=== PATIENT | male | born 1975 | race Caucasian/White ===

== ENCOUNTER → 2017-10-25 | Outpatient (CLI) | payer OTHER ==
[2017-10-25] MEDS: REGADENOSON 0.4 MG/5 ML DISP.SYRIN. IV (10:48)
== END | disposition home or self-care (01) ==
LOC: NM 09:21
DX: I11.0 Hypertensive heart disease with heart failure (principal); I25.10 Atherosclerotic heart disease of native coronary artery without angina pectoris; E11.9 Type 2 diabetes mellitus without complications; Z79.01 Long term (current) use of anticoagulants
CPT/HCPCS: 78452; 93017; 96374; 96375; 96376; A9500; J2785

== ENCOUNTER 2019-06-09 07:38 | Emergency (ER) | payer OTHER ==
[~2019-06-09] VITALS: Ht 193 cm; Wt 122.5 kg
[~2019-06-09 07:38] MED LIST: AMLO5TAB10 PO; ATOR20TA58 PO; EXEN5PEN2 SQ; FENO145T30 PO; FISH1CAP PO; GLUC100018 PO; METF500T16 PO; OMEP40CA45 PO
[2019-06-09 07:55] VITALS: BP 160/80
[2019-06-09] MEDS ORDERED: CYCL10TA2 PO (08:19)
[2019-06-09] MEDS ORDERED: DICL50TA4 PO (08:19)
--- NOTE | 2019-06-09 08:19 | PHYS DOC ---
Past Medical History Past Medical History: Diabetes-Type II, GERD, Hypertension Past Surgical History: Tonsillectomy Additional Past Surgical Histo: ROTATOR CUFF R, MENISCUS Alcohol Use: Occasionally Drug Use: None Adult General Chief Complaint Chief Complaint: BACK PAIN OR INJURY HPI HPI Patient is a 44-year-old male presents to the emergency department for evaluation. He states for the past 2 weeks he has had some generalized low back pain, he denies any injuries. He states that he has been on his feet a lot over the past few days, taking his children to various entertainment venues, and although he did not do any super strenuous activity, or have any injuries, he has had increased back pain over the past 2 days. The pain is in the central of his lumbar spine, and worsened with movement. The pain does not radiate, he has not had any fevers, chills, numbness, weakness, incontinence, saddle anesthesia, or urinary retention. There are no alleviating or exacerbating factors to his symptoms. He did go see a chiropractor about 1 week ago. Review of Systems Review of Systems Constitutional: Denies fever or chills [] Eyes: Denies change in visual acuity, redness, or eye pain [] HENT: Denies nasal congestion or sore throat [] Respiratory: Denies cough or shortness of breath [] GI: Denies abdominal pain, nausea, vomiting, bloody stools or diarrhea [] : Denies dysuria or hematuria [] Musculoskeletal: Denies neck pain or upper back pain or joint pain [] Integument: Denies rash or skin lesions [] Neurologic: Denies headache, focal weakness or sensory changes [] Endocrine: Denies polyuria or polydipsia [] Allergies Allergies Allergies Coded Allergies Type Severity Reaction Last Updated Verified lisinopril Allergy Severe Swelling 10/25/17 No Physical Exam Physical Exam PHYSICAL EXAM: CONSTITUTIONAL: Well developed, well nourished HEAD: normocephalic, atraumatic EENT: PERRL, EOMI. Conjunctivae normal color, sclerae non-icteric; moist mucous membranes. NECK: Supple, non-tender; no meningismus. LUNGS: Lungs CTA, breathing even and unlabored. Normal air movement. HEART: Regular rate and rhythm, no murmur CHEST: No deformity; non-tender ABDOMEN: The abdomen is soft, and non-tender, no masses or bruits. EXTREM: Normal ROM; no deformity, no calf tenderness. Normal pulses palpable in all extremities. There is no pedal edema. SKIN: No rash; no diaphoresis NEURO: Alert; normal speech and cognition; CN's grossly intact; strength grossly intact without focal deficit. There is no foot drop, or perineal anesthesia. Patellar reflexes are 1+ bilaterally. Distal sensation is normal. Straight leg raise is negative. BACK: No CVA TTP. There is tenderness to palpation in the lower lumbar spine, both midline and paraspinal, which reproduces the patient's pain. There is no step-off. Skin of the back is normal. Current Patient Data Vital Signs Vital Signs Date Time Temp Pulse Resp B/P (MAP) Pulse Ox O2 Delivery O2 Flow Rate FiO2 06/09/19 07:55 98.8 98 18 160/80 (106) 96 Room Air 98.8 EKG EKG [] Radiology/Procedures Radiology/Procedures [] Course & Med Decision Making Course & Med Decision Making I discussed symptomatic treatment with the patient, and we discussed the need for imaging if symptoms persist. We discussed doing an x-ray in the emergency department, but we both feel that yield is very low at this point and the patient would like to hold off, I discussed therapeutic trial of muscle relaxers and NSAIDs, the need for close PCP follow-up for further outpatient evaluation and possible cross sectional imaging if symptoms persist, and return precautions were discussed in detail. Dragon Disclaimer Dragon Disclaimer This electronic medical record was generated, in whole or in part, using a voice recognition dictation system. Departure Departure Impression: Primary Impression: Low back pain Disposition: 01 HOME, SELF-CARE Condition: STABLE Referrals: MARCO RHOADES MD Patient Instructions: Low Back Sprain with Rehab-SportsMed, Lumbosacral Strain Additional Instructions: Applying a heating pad to the affected area may help improve your symptoms. The prescribed medications may cause drowsiness-use caution while taking. Scripts Diclofenac Sodium (DICLOFENAC SODIUM) 50 Mg Tablet. 1 TAB PO BID, #20 TAB 0 Refills Prov: MARCO BYRNES MD 06/09/19 Cyclobenzaprine Hcl (CYCLOBENZAPRINE HCL) 10 Mg Tablet 1 TAB PO TID PRN for PAIN, #30 TAB Prov: MARCO BYRNES MD 06/09/19 MARCO BYRNES MD Jun 09, 2019 08:19
== END 2019-06-09 08:27 | disposition home or self-care (01) ==
LOC: ER 07:38
DX: M54.5 Low back pain (principal); I10 Essential (primary) hypertension; K21.9 Gastro-esophageal reflux disease without esophagitis; E11.9 Type 2 diabetes mellitus without complications; Z88.8 Allergy status to other drugs, medicaments and biological substances
CPT/HCPCS: 99283

== ENCOUNTER → 2019-06-12 | Outpatient (CLI) | payer OTHER ==
[2019-06-09 07:55] VITALS: BP 160/80
[~2019-06-12] MED LIST changes: +CYCL10TA2 PO; +DICL50TA4 PO
--- NOTE | 2019-06-12 17:12 | KCIC ---
MRI Lumbar Spine without contrast History: Low back pain, right radiculopathy Technique: Multiplanar, multi sequential noncontrast MR imaging was performed of the lumbar spine. Comparison: None Findings: Lumbar vertebral body stature is overall maintained. There is negligible anterior spondylolisthesis L3-4. There is mild disc desiccation L4-5 and L5-S1. There is small hemangioma of the T12 vertebral body, also small focus of L4. Conus terminates near the mid to superior aspect of L1. L1-L2: Spinal canal and the neural foramina are adequate. L2-L3: There is mild buckling of the ligamentum flavum and prominence of posterior epidural fat. Neural foramina and spinal canal are adequate. L3-L4: There is minimal facet degenerative change. There is mild prominence of posterior epidural fat and mild buckling of the ligamentum flavum. Spinal canal and neural foramina are adequate. L4-L5: There is minimal buckling of the ligamentum flavum. Spinal canal and neural foramina are adequate. L5-S1: There is protrusion eccentric to the right lateral recess measuring about 7 mm AP by 6 to 7 mm CC by about 13 mm transverse. There is contact and posterior displacement of the descending right S1 nerve root in the right recess, moderate to severe right lateral recess stenosis. Neural foramina are adequate. Impression: 1. There is protrusion eccentric to the right lateral recess at L5-S1 with posterior displacement of the descending right S1 nerve root, moderate to severe right lateral recess stenosis. 2. There is negligible anterior spondylolisthesis at L3-4. Electronically signed by: Elder Walls MD (06/12/2019 5:09 PM) [facility]
== END | disposition home or self-care (01) ==
LOC: KCIC MRI 15:55
PROVIDERS: ATTEND Neurological Surgery
DX: M51.16 Intervertebral disc disorders with radiculopathy, lumbar region (principal); M47.26 Other spondylosis with radiculopathy, lumbar region; M48.07 Spinal stenosis, lumbosacral region; M43.16 Spondylolisthesis, lumbar region; M53.3 Sacrococcygeal disorders, not elsewhere classified
CPT/HCPCS: 72148

== ENCOUNTER → 2019-07-08 | Outpatient (CLI) | payer OTHER ==
[2019-06-09 07:55] VITALS: BP 160/80
[~2019-07-08] MED LIST changes: +GLIM2TAB3 PO; +LOSA-73 PO
[2019-07-08 15:36] LABS: BASO # 0.1 x10^3/uL (0.0-0.2); BASO % 1 % (0-3); EOS # 0.2 x10^3/uL (0.0-0.7); EOS % 2 % (0-3); HEMATOCRIT 42.4 % (39.0-53.0); HEMOGLOBIN 13.9 g/dL (13.0-17.5); LYMPH # 3.1 x10^3/uL (1.0-4.8); LYMPH % 41 % (24-48); MEAN CORPUSCULAR HEMOGLOBIN 28 pg (25-35); MEAN CORPUSCULAR HGB CONC 33 g/dL (31-37); MEAN CORPUSCULAR VOLUME 85 fL (79-100); MONO # 0.8 x10^3/uL (0.0-1.1); MONO % 10 % (0-9); NEUT # 3.6 x10^3/uL (1.8-7.7); NEUT % 46 % (31-73); PLATELET COUNT 226 x10^3/uL (140-400); RED CELL DISTRIBUTION WIDTH 14.3 % (11.5-14.5); WHITE BLOOD COUNT 7.7 x10^3/uL (4.0-11.0)
--- NOTE | 2019-07-08 15:41 | EKG ---
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
[2019-07-08 16:09] LABS: ALBUMIN 4.4 g/dL (3.4-5.0); ALBUMIN/GLOBULIN RATIO 1.3 (1.0-1.7); CREATININE 1.1 mg/dL (0.7-1.3); GFR 73.1; TOTAL BILIRUBIN 0.3 mg/dL (0.2-1.0); TOTAL PROTEIN 7.7 g/dL (6.4-8.2)
[2019-07-09 02:08] LABS: HEMOGLOBIN A1C 7.6 % (4.8-5.6)
== END | disposition home or self-care (01) ==
LOC: SURGPAT 13:30
PROVIDERS: ATTEND Neurological Surgery
DX: Z01.818 Encounter for other preprocedural examination (principal); M51.17 Intervertebral disc disorders with radiculopathy, lumbosacral region; Z88.8 Allergy status to other drugs, medicaments and biological substances
CPT/HCPCS: 36415; 80053; 83036; 85025; 87641; 93005

== ENCOUNTER 2019-07-19 07:09 | Day surgery (SDC) | payer OTHER ==
--- NOTE | 2019-07-18 15:35 | PREOP HP ---
DATE OF SERVICE: DATE OF SURGERY: 07/19/2019 HISTORY OF PRESENT ILLNESS: The patient is a pleasant 44-year-old who has pain that is slightly improved, but continues to be troublesome on the right side of his lower back that radiates into his right buttock and posterior thigh and leg. The problem occurred about 6 weeks ago. He is taking pain medication as well as muscle relaxers. He has been limiting his lifting, which has helped with his pain. He is not interested in epidural steroid injections due to his diabetes. PAST MEDICAL HISTORY: Diabetes, hypertension. PAST SURGICAL HISTORY: Surgical history of left knee, right knee, right shoulder. FAMILY HISTORY: Heart disease, hypertension. 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 . Quit smoking more than 10 years ago. Drinks alcohol 1-2 times per month. ALLERGIES: LISINOPRIL. CURRENT MEDICATIONS: Diclofenac, Flexeril, glimepiride, metformin, losartan, atorvastatin, amlodipine, fenofibrate, omeprazole, [place], fish oil, glucosamine, diclofenac, cyclobenzaprine. REVIEW OF SYSTEMS: A 12-point review of systems was obtained and is noncontributory except that mentioned above. PHYSICAL EXAMINATION: NEUROSURGERY EXAMINATION: GENERAL APPEARANCE: Alert, pleasant, no acute distress. HEAD: Normocephalic and atraumatic. SKIN: Warm and dry. MUSCULOSKELETAL: Lumbar paraspinal muscle bulk is normal, restricted range of motion of the lumbar spine, [id number] tenderness of the lumbar spine with palpation, normal range of motion of the lower extremities bilaterally. EXTREMITIES: No clubbing, cyanosis or edema. NEUROLOGIC: Alert and oriented x 3, normal recent and remote memory, strength 5/5 in bilateral lower extremities, sensory is intact to light touch in lower extremities bilaterally, reflexes were present and symmetric in bilateral lower extremities, positive straight leg raising on the right, negative straight leg raising on the left, normal gait. IMAGING: Reviewed. There is a herniated disk at L5-S1 with compression of the right S1 nerve root. ASSESSMENT: Intervertebral disk disorders with radiculopathy, lumbosacral region. PLAN: We reviewed the imaging studies. We spoke about options including physical therapy or epidural steroid injections or allowing more time for improvement. He would like to proceed with surgery at this time. We reviewed the technique, risks as well as postoperative course. He understands. All questions were answered. We will make the arrangements. MARIELLA REYES MD DR: RUSH/michelle JOB#: [id number] / [id number]
[~2019-07-19] VITALS: Ht 193 cm; Wt 122.5 kg
[~2019-07-19 07:09] MED LIST changes: +BACITRACIN 50,000 UNIT in IV NORMAL SALINE 1000ML BAG 1,000 ML IRR ONE; +DEXAMETHASONE SOD PHOS 20 MG/5 ML VIAL. ONE; +GELATIN SPONGE SIZE 100. ONE; +HYDROmorphone 2 MG/ML VIAL IV PRN; +IV RINGERS,LACTATED 1000ML 1,000 ML IV SCH; +KETOROLAC 60 MG/2 ML VIAL. ONE; +LIDOCAINE 2% PF 5 ML VIAL. ONE; +MORPHINE SULFATE 2 MG/ML VIAL. IV PRN; +ONDANSETRON PF 4 MG/2 ML VIAL. IV PRN; +ONDANSETRON PF 4 MG/2 ML VIAL. ONE; +PROCHLORPERAZINE 10 MG/2 ML VIAL. IV PRN; +PROPOFOL 20 ML IV ONE; +PROPOFOL 50 ML IV ONE; +REMIFENTANIL 2 MG VIAL. IV ONE; +ROCURONIUM 50 MG/5 ML VIAL. ONE; +THROMBIN TOPICAL 20,000 UNIT SPRAY.SYRN KIT TP ONE; +ceFAZolin SODIUM 3 GM in IV DEXTROSE 5% 100ML 100 ML IV PRN; +fentaNYL PF VIAL 100 MCG/2 ML VIAL IV PRN
[2019-07-19] MEDS ORDERED: BUPIVACAINE-EPI 0.5%-1:200000 MPF 30 ML VIAL. INJ ONE (08:00)
[2019-07-19] MEDS: INSULIN LISPRO 100 UNIT/ML 3ML VIAL for OP,RR ONLY. SQ PRN ×2 (08:34→12:26)
[2019-07-19] MEDS ORDERED: MIDAZOLAM HCL/PF 2 MG/2 ML VIAL. ONE (09:02)
[2019-07-19] MEDS ORDERED: PHENYLEPHRINE 10 MG/ML VIAL. ONE (09:25)
[2019-07-19] MEDS ORDERED: MINERAL OIL/PETROLATUM,WHITE OPHTH OINT 3.5GM TUBE. ONE (09:25)
[2019-07-19] MEDS ORDERED: VASOPRESSIN 20 UNIT/ML VIAL. ONE (09:45)
[2019-07-19] MEDS ORDERED: ePHEDrine PF IN SALINE 50 MG/10 ML SYRINGE. IV ONE (09:52)
[2019-07-19] MEDS ORDERED: INSULIN REGULAR 100 UNIT/ML 3ML VIAL. IV ONE (11:00)
[2019-07-19] MEDS ORDERED: PROPOFOL 50 ML IV ONE ×2 (11:00→11:20)
[2019-07-19] MEDS ORDERED: DESFLURANE > 120 MINUTES IH ONE (11:00)
[2019-07-19] MEDS ORDERED: HYDR-3164 PO (12:02)
[2019-07-19] MEDS ORDERED: DOCU-109 PO (12:02)
--- NOTE | 2019-07-19 12:04 | DISCH ---
DISCHARGE INSTRUCTIONS Condition on Discharge Condition on Discharge: Stable Activity After Discharge Activity Instructions for Disc: Activity as tolerated, Avoid exertion Other activity instructions: no driving for a week Bathing Instructions: Shower-keep dressing dry Lifting Instructions after Dis: No heavy lifting, No pulling or pushing, Do not lift >10 pounds Weight Bearing Status after Di: As tolerated Sexual Activity Restrictions: as tolerated Diet after Discharge Additional Diet Restrictions: resume home diet Wound Incision Care Wound/Incision Care: Ice to area for comfort Other wound/incision instructi: may remove dressing in 48 hours if dry then may shower, no soaking Contacting the DRValeria after DC Call your doctor for: Concerns you may have Follow-Up Follow up with: Dr. Reyes's nurse in 2 weeks [phone] MARIELLA REYES MD Jul 19, 2019 12:04
[2019-07-19 12:55] VITALS: BP 163/79
[2019-07-19] MEDS ORDERED: fentaNYL PF VIAL 100 MCG/2 ML VIAL ONE (12:55)
[2019-07-19] MEDS ORDERED: HYDROcodone/APAP 5/325MG 1 TAB TABLET PO ONE (13:00)
--- NOTE | 2019-07-22 18:34 | OP ---
DATE OF SURGERY: 07/19/2019 PREOPERATIVE DIAGNOSES: Herniated lumbar disc, L5-S1, right, with right lumbar radiculopathy. POSTOPERATIVE DIAGNOSES: Herniated lumbar disc, L5-S1, right, with right lumbar radiculopathy. OPERATION PERFORMED: Hemilaminotomy and microdiscectomy L5-S1, right. Operation was done with multimodality monitoring including EMG monitoring, SSEP monitoring. We also used fluoroscopy and microscopy and microscopic dissection. SURGEON: Shiraz Reyes M.D. MARITIME PILOT: Jenny Frias APRN assisted with the surgery. She assisted with the microdiscectomy as well as closure. OPERATIVE INDICATIONS: The patient is a pleasant 44-year-old man who developed intractable back and right leg pain which failed conservative measures. On imaging studies, he had the above-mentioned findings with a moderately large herniated disc at L5-S1 on the right. He understood the surgery, the risks, technique and expected postoperative course and wished to go ahead. DESCRIPTION OF PROCEDURE: Following general endotracheal anesthesia, the patient was positioned prone on the [place] table. Lumbar region prepped and draped in standard fashion. EZIO hose and AV impulse boots were applied for DVT prophylaxis. A microscope was draped. Fluoroscopy was draped and was brought into the field. Monitoring was established. Ancef 3 gram was given prior to initiation of surgery. Using fluoroscopic guidance, a midline incision was made directly over the interspace and dissected down through skin and subcutaneous tissue, reflected the paraspinal muscles and placed a [place] microdisk retractor. I brought in the microscope and using the high speed air drill, I burred down a generous hemilaminotomy and I trimmed the overlying bone and ligament away and I performed a partial foraminotomy. I gently retracted the dura medially the level of the disc. There was a large bulging disc, which I then incised in the subligamentous position with a blunt hook and began to tease back and remove multiple disc fragments. I removed two large disc fragments and the root was very well mobilized and free. I then continued to work and entered into the disc space after incising the annulus with #11 blade and performed a discectomy with pituitary rongeurs. As I worked, the region became further decompressed. At this point, then I irrigated copiously. There were no retained fragments. The root was quite free. I assured myself of excellent hemostasis, removed the retractor, irrigated and obtained hemostasis in the muscle and I closed the wound in layers with absorbable suture and the skin was closed with 4-0 subcuticular stitch. I felt the surgery went very well. SHIRAZ REYES MD DR: RUSH/michelle JOB#: [id number] / [id number] RENZO
--- NOTE | 2019-07-22 23:06 | PATHOLOGY ---
[facility] Accession Number: [id number] . 01 Material submitted: . vertebral column - LUMBAR DISC AND DECOMPRESSION . 01 Clinical history: . Lumbar herniated disc and radiculopathy . 02 Diagnosis: Bone cartilage and soft tissue, "lumbar disc and decompression", L5-S1: - Fragments of bone cartilage and soft tissue revealing degenerative changes. . (SHA:mm; 07/22/2019) REPLACED BY [facility] 07/22/2019 1546 Local . 02 Electronically signed: . Maged Munoz MD, Pathologist NPI- [id number] . 01 Gross description: . Received in formalin labeled "Crispin Orr, lumbar disc and decompression," are several pieces of glistening, fibrous tissue measuring 4.3 x 2.9 x 1.5 cm in aggregate dimensions, containing small fragments of possible bone. The tissue is submitted representatively in cassette A1, following decalcification. (TSD; 07/19/2019) TOB/TOB 07/19/2019 1831 Local . 02 Pathologist provided ICD-10: M51.37 . 02 CPT . 563714, [id number] Specimen Comment: A courtesy copy of this report has been sent to [phone], [phone] Specimen Comment: [id number] Specimen Comment: Report sent to / DR RHOADES Specimen Comment: A duplicate report has been generated due to demographic updates. Performed at: 01 [facility] [address], [place] [id number] MD Hitesh Anthony MD Phone: [phone] Performed at: [address] [facility] [address] [place], [place] [id number] MD Jeff Jordan MD Phone: [phone]
== END 2019-07-19 13:48 | disposition home or self-care (01) ==
LOC: SURG 07:09
PROVIDERS: ATTEND Neurological Surgery
DX: M51.16 Intervertebral disc disorders with radiculopathy, lumbar region (principal); I10 Essential (primary) hypertension; E78.00 Pure hypercholesterolemia, unspecified; G47.30 Sleep apnea, unspecified; K21.9 Gastro-esophageal reflux disease without esophagitis; E11.9 Type 2 diabetes mellitus without complications; Z79.899 Other long term (current) drug therapy; Z87.891 Personal history of nicotine dependence; Z79.84 Long term (current) use of oral hypoglycemic drugs; Z72.89 Other problems related to lifestyle
CPT/HCPCS: 63030; 82962; 97116; 97162; 97530; A7015; J0171; J1100; J1815; J1885; J2001; J2250; J2405; J2704; J3010; J3490; J7030; J7120; 76000